=== PATIENT | female | born 1990 ===

== ENCOUNTER 2017-11-06 17:03 | Emergency (ER) | payer SELFPAY ==
[2017-11-06 18:29] VITALS: BP 115/75; PULSE 74; RESP 20; TEMP 98.1; O2SAT 98
--- NOTE | 2017-11-06 18:49 | ED PDOC ---
HPI: Back Time Seen by Provider: 11/06/17 18:30 Chief Complaint (Nursing): Back Pain Chief Complaint (Provider): Back Pain, head injury History Per: Patient Additional Complaint(s): 27 year old female presents to the ED for evaluation of lower back pain and headache s/p fall yesterday. Patient states that she has a few drinks last night and when she got home she tripped while going down set of stairs in her apartment. She reports positive LOC. Patient went to work today and back pain worsened prompting ED visit. Patient took 2 motrin but this did not help the pain. She also has had dysuria for the past 2 days and would like to be checked for UTI. PMD: none Past Medical History Reviewed: Historical Data, Nursing Documentation, Vital Signs Vital Signs: Last Vital Signs Temp 98.1 F 11/06/17 18:26 Pulse 74 11/06/17 18:26 Resp 20 11/06/17 18:26 BP 115/75 11/06/17 18:26 Pulse Ox 98 11/06/17 18:26 - Medical History PMH: Asthma - Surgical History Surgical History: No Surg Hx - Family History Family History: States: No Known Family Hx - Living Arrangements Living Arrangements: With Family - Social History Current smoker - smoking cessation education provided: Yes Alcohol: Social Drugs: Denies - Home Medications Home Medications: Ambulatory Orders Medication Instructions Recorded Ciprofloxacin HCl [Cipro] 500 mg PO BID #14 tablet 11/06/17 Cyclobenzaprine [Cyclobenzaprine 10 mg PO TID PRN #20 tab 11/06/17 HCl] Naproxen [Naprosyn] 500 mg PO BID #20 tab 11/06/17 - Allergies Allergies/Adverse Reactions: Allergies Allergy/AdvReac Type Severity Reaction Status Date / Time No Known Allergies Allergy Verified 11/06/17 18:43 Review of Systems ROS Statement: Except As Marked, All Systems Reviewed And Found Negative Eyes: Negative for: Vision Change Genitourinary Female: Positive for: Dysuria Musculoskeletal: Positive for: Back Pain (s/p fall) Neurological: Positive for: Other (head injury with LOC ) Physical Exam - Reviewed Nursing Documentation Reviewed: Yes Vital Signs Reviewed: Yes - Physical Exam Appears: Positive for: Well, Non-toxic, No Acute Distress Head Exam: Positive for: ATRAUMATIC, NORMAL INSPECTION, NORMOCEPHALIC Skin: Positive for: Normal Color. Negative for: Rash Eye Exam: Positive for: Normal appearance Cardiovascular/Chest: Positive for: Regular Rate, Rhythm Respiratory: Positive for: Normal Breath Sounds Gastrointestinal/Abdominal: Positive for: Soft. Negative for: Tenderness, Distended, Guarding, Rebound Back: Positive for: Other (midline tenderness to lumbar spine, no step-off). Negative for: L CVA Tenderness, R CVA Tenderness Neurologic/Psych: Positive for: Alert, Oriented (x3) - Laboratory Results Urine POC: Negative Urine dip results: Positive for: Leukocyte Esterase (trace), Blood (moderate) - ECG O2 Sat by Pulse Oximetry: 98 (RA) Pulse Ox Interpretation: Normal - Other Rad CT head X-Ray: Read By Radiologist X-Ray Interpretation: no bleed, no acute finding LS Spine x-ray X-Ray: Interpreted by Me, Viewed By Me X-Ray Interpretation: no fx, no dis Medical Decision Making Medical Decision Making: Time: 1842 Initial Impression: 27 year old female with back pain and head injury status post fall last night, also with dysuria Initial Plan: --Head W/O Contrast [CT] --Urine --Urine Dip --LS Spine (PA/LAT) [RAD] --Patient given Flexeril 10mg PO, Toradol 60mg IM and Ultram 50mg PO Patient reports improvement to pain after meds given. Leuks noted in urine, patient given rx cipro. Prescriptions for Flexeril and Naprosyn also given. Patient was referred to clinic for follow-up. Scribe Attestation: Documented by Glo Fink, acting as a scribe for Meghann Rosales PA-C Provider Scribe Attestation: All medical record entries made by the Scribe were at my direction and personally dictated by me. I have reviewed the chart and agree that the record accurately reflects my personal performance of the history, physical exam, medical decision making, and the department course for this patient. I have also personally directed, reviewed, and agree with the discharge instructions and disposition. Disposition - Clinical Impression Clinical Impression: Back strain, Urinary tract infection, Head injury - Patient ED Disposition Is Patient to be Admitted: No Counseled Patient/Family Regarding: Studies Performed, Diagnosis, Need For Followup, Rx Given - Disposition Referrals: [facility] [Outside] Disposition: Routine/Home Disposition Time: 21:36 Condition: STABLE Additional Instructions: Take prescription meds as directed. Follow-up with clinic in 2-3 days Prescriptions: Ciprofloxacin HCl [Cipro] 500 mg PO BID #14 tablet Cyclobenzaprine [Cyclobenzaprine HCl] 10 mg PO TID PRN #20 tab PRN Reason: Muscle Spasm Naproxen [Naprosyn] 500 mg PO BID #20 tab Instructions: Closed Head Injury (DC), Low Back Pain in Adults, Muscle Strain ( DC), Back Exercises, Urinary Tract Infections in Adults Forms: [facility] ([place]), [facility] ED School/Work Excuse
--- NOTE | 2017-11-07 08:15 | RAD ---
PROCEDURE: Radiographs of the Lumbar Spine. HISTORY: trauma COMPARISON: No prior. FINDINGS: BONES: Normal alignment. No listhesis. No fracture. DISC SPACES: Unremarkable. OTHER FINDINGS: None. IMPRESSION: Unremarkable radiographs of the lumbar spine.
--- NOTE | 2017-11-07 10:11 | CT ---
PROCEDURE: CT HEAD WITHOUT CONTRAST. HISTORY: trauma COMPARISON: None available. TECHNIQUE: Axial computed tomography images were obtained through the head/brain without intravenous contrast. Radiation dose: Total exam DLP = 816.54 mGy-cm. This CT exam was performed using one or more of the following dose reduction techniques: Automated exposure control, adjustment of the mA and/or kV according to patient size, and/or use of iterative reconstruction technique. FINDINGS: HEMORRHAGE: No intracranial hemorrhage. BRAIN: Normal gomez-white matter differentiation and density are appreciated throughout the cerebrum and cerebellum with the brainstem appearing unremarkable as well. There is no mass effect. There is no suspicious extra-axial fluid collection and the midline brain anatomy appears diffusely unremarkable. VENTRICLES: Unremarkable. No hydrocephalus. CALVARIUM: No destructive bony lesion or displaced fracture identified including through the skullbase. PARANASAL SINUSES: Unremarkable as visualized. No significant inflammatory changes. MASTOID AIR CELLS: Unremarkable as visualized. No inflammatory changes. OTHER FINDINGS: None. IMPRESSION: Unremarkable noncontrast head CT.
== END 2017-11-06 21:57 | disposition home or self-care (01) ==
LOC: H.ER 17:03
DX: S09.90XA Unspecified injury of head, initial encounter (principal); S39.012A Strain of muscle, fascia and tendon of lower back, initial encounter; W19.XXXA Unspecified fall, initial encounter; Y92.89 Other specified places as the place of occurrence of the external cause; N39.0 Urinary tract infection, site not specified
CPT/HCPCS: 70450; 72100; 81025; 87086; 87491; 87591; 96372; 99283; J1885; J2930